=== PATIENT | female | born 1990 | race American Indian/Alaskan Native ===

== ENCOUNTER 2019-10-27 17:35 | Emergency (ER) | payer SELFPAY ==
[2019-10-27 22:23] VITALS: BP 149/85
== END 2019-10-27 23:45 | disposition left against medical advice (07) ==
LOC: ED 17:35
DX: R53.1 Weakness (principal); Z53.21 Procedure and treatment not carried out due to patient leaving prior to being seen by health care provider

== ENCOUNTER 2019-10-28 02:49 | Emergency (ER) | payer SELFPAY ==
[2019-10-28] MEDS ORDERED: ASPIRIN 325 MG TAB PO ONE (03:08)
[2019-10-28 04:12] LABS: Basophils # (Auto) 0.1 K/mm3 (0.0-0.1); Basophils % (Auto) 1.9 % (0.0-1.8); Eosinophils # (Auto) 0.1 K/mm3 (0.0-0.4); Hemoglobin 8.7 gm/dl (10.1-14.3); Lymphocytes # (Auto) 1.6 K/mm3 (1.2-5.4); Monocytes # (Auto) 0.6 K/mm3 (0.0-0.8); Monocytes % (Auto) 12.1 % (0.0-7.3)
[2019-10-28 04:19] LABS: Hematocrit 27.9 % (30.3-42.9); Mean Corpuscular HGB Conc 31 % (30-34); Platelet Count 201 K/mm3 (140-440); Red Blood Count 4.12 M/mm3 (3.65-5.03)
[2019-10-28 04:21] LABS: Mean Corpuscular Volume 68 fl (79-97)
[2019-10-28 04:22] LABS: Red Cell Distribution Width 20.4 % (13.2-15.2)
[2019-10-28 04:39] LABS: BUN/Creatinine Ratio 14; Blood Urea Nitrogen 7 mg/dL (7-17)
[2019-10-28 04:40] LABS: Hemolysis Index 4
--- NOTE | 2019-10-28 04:45 | XRay Report ---
CHEST 1 VIEW INDICATION: Chest Pain. COMPARISON: None. FINDINGS: Support devices: None. Heart: Normal. Lungs/Pleura: No acute pulmonary or pleural findings. IMPRESSION: 1. No acute findings. Signer Name: Ede Solano MD Signed: 10/28/2019 4:41 AM Workstation Name: [id number]
[2019-10-28] MEDS ORDERED: ACETAMINOPHEN 325 MG TAB PO ONE (04:51)
[2019-10-28] MEDS ORDERED: IBUPROFEN 400 MG TAB PO ONE (04:51)
[2019-10-28] MEDS ORDERED: FAMOTIDINE 20 MG TAB PO ONE (04:51)
--- NOTE | 2019-10-28 04:53 | Event Note ---
Date: 10/28/19 Medical screening note: 29-year-old female, presenting to the ER with over 24 hours of intermittent right-sided and left-sided pinching chest wall pain. Denies DVT and pulmonary embolism risk factors. Endorses generalized weakness. Leaves that she may have been exposed to COVID. She is not certain. Place patient on isolation, treat symptoms, obtain EKG x2, troponin x2, appropriate screening laboratory studies, and ambulate patient on room air on portable pulse oximeter for 5 minutes to assess for desaturation. Patient also endorses a history of significant anxiety Vital Signs 10/28/19 10/28/19 03:07 03:43 Temperature 98.5 F 98.6 F Pulse Rate 103 H 84 Respiratory 16 16 Rate Blood Pressure 125/83 137/90 [Right] O2 Sat by Pulse 99 98 Oximetry Lab Results 10/28/19 10/28/19 10/28/19 Range/Units 03:32 03:32 03:32 WBC 5.3 (4.5-11.0) K/mm3 RBC 4.12 (3.65-5.03) M/mm3 Hgb 8.7 L (10.1-14.3) gm/dl Hct 27.9 L (30.3-42.9) % MCV 68 L (79-97) fl MCH 21 L (28-32) pg MCHC 31 (30-34) % RDW 20.4 H (13.2-15.2) % Plt Count 201 (140-440) K/mm3 Lymph % (Auto) 31.0 (13.4-35.0) % [place] % (Auto) 12.1 H (0.0-7.3) % Eos % (Auto) 1.0 (0.0-4.3) % Baso % (Auto) 1.9 H (0.0-1.8) % Lymph # 1.6 (1.2-5.4) K/mm3 [place] # 0.6 (0.0-0.8) K/mm3 Eos # 0.1 (0.0-0.4) K/mm3 Baso # 0.1 (0.0-0.1) K/mm3 Seg Neutrophils % 54.0 (40.0-70.0) % Seg Neutrophils # 2.9 (1.8-7.7) K/mm3 Sodium 137 (137-145) mmol/L Potassium 3.9 (3.6-5.0) mmol/L Chloride 98.5 (98-107) mmol/L Carbon Dioxide 22 (22-30) mmol/L Anion Gap 20 mmol/L BUN 7 (7-17) mg/dL Creatinine 0.5 L (0.7-1.2) mg/dL Estimated GFR > 60 ml/min BUN/Creatinine Ratio 14 % Glucose 87 (65-100) mg/dL Calcium 9.0 (8.4-10.2) mg/dL Troponin T 0.010 (0.00-0.029) ng/mL HCG, Qual Negative (Negative)
[2019-10-28 05:47] VITALS: BP 121/76
--- NOTE | 2019-10-28 06:43 | Emergency Department Report ---
ED General Adult HPI - General Chief complaint: Chest Pain Stated complaint: CHEST PAIN Time Seen by Provider: 10/28/19 06:31 Source: patient, EMS Mode of arrival: Ambulatory Limitations: No Limitations - History of Present Illness Initial comments: Patient is 29 years old female with no significant past medical history. Patient presented to the ER complaining of chest pain and pinching on and off for a while. Patient also stated that her uncle recently diagnosed with COVID- 19 and she is worried that she might have it also. Patient denied any fever or chills but is stated that she is having some runny nose cough congestion however she said that she is a heavy smoker. Patient also admitted to drinking alcohol daily but declined rehab now. Patient stated that she also have irregular and sometimes heavy menstrual cycle when I informed her about her hemoglobin of 8.7. Patient denied any hematemesis, hematochezia or melena. Severity scale (0 -10): 8 - Related Data Allergies Allergy/AdvReac Type Severity Reaction Status Date / Time Penicillins Allergy Hives Verified 10/28/19 03:06 Sulfa (Sulfonamide Allergy Hives Verified 10/28/19 03:06 Antibiotics) ED Review of Systems ROS: Stated complaint: CHEST PAIN Other details as noted in HPI Comment: All other systems reviewed and negative Constitutional: denies: chills, fever Respiratory: cough. denies: orthopnea, shortness of breath, SOB with exertion, SOB at rest, wheezing Cardiovascular: chest pain, palpitations Gastrointestinal: denies: abdominal pain, nausea, vomiting, diarrhea, constipation, hematemesis, melena, hematochezia Musculoskeletal: denies: back pain Neurological: denies: headache, weakness, numbness, paresthesias, confusion, abnormal gait ED Past Medical Hx - Past Medical History Previous Medical History?: Yes Hx Hypertension: Yes Hx Psychiatric Treatment: Yes (anxeity) - Surgical History Past Surgical History?: Yes Hx Appendectomy: Yes - Social History Smoking Status: Current Every Day Smoker Substance Use Type: Alcohol ED Physical Exam - General Limitations: No Limitations General appearance: alert, in no apparent distress - Head Head exam: Present: atraumatic, normocephalic, normal inspection - Eye Eye exam: Present: normal appearance - ENT ENT exam: Present: normal exam, normal orophraynx, mucous membranes moist - Neck Neck exam: Present: normal inspection, full ROM. Absent: tenderness, meningismus, lymphadenopathy, thyromegaly - Respiratory Respiratory exam: Present: normal lung sounds bilaterally - Cardiovascular Cardiovascular Exam: Present: regular rate, normal rhythm, normal heart sounds - GI/Abdominal GI/Abdominal exam: Present: soft, normal bowel sounds. Absent: distended, tenderness, guarding, rebound, rigid, organomegaly, mass, bruit, pulsatile mass, hernia - Extremities Exam Extremities exam: Present: normal inspection, full ROM, normal capillary refill - Back Exam Back exam: Present: normal inspection, full ROM. Absent: CVA tenderness (R), C VA tenderness (L) - Neurological Exam Neurological exam: Present: alert, oriented X3, CN II-XII intact, normal gait, reflexes normal. Absent: motor sensory deficit - Psychiatric Psychiatric exam: Present: normal mood - Skin Skin exam: Present: warm, intact, normal color ED Course Vital Signs 10/28/19 10/28/19 10/28/19 03:07 03:43 04:00 Temperature 98.5 F 98.6 F Pulse Rate 103 H 84 76 Respiratory 16 16 18 Rate Blood Pressure 146/98 Blood Pressure 125/83 137/90 [Right] O2 Sat by Pulse 99 98 97 Oximetry 10/28/19 10/28/19 05:00 05:12 Temperature Pulse Rate Respiratory 15 16 Rate Blood Pressure 121/76 Blood Pressure [Right] O2 Sat by Pulse 98 Oximetry ED Medical Decision Making - Lab Data Result diagrams: 10/28/19 03:32 10/28/19 03:32 - Radiology Data Radiology results: report reviewed - Medical Decision Making Patient is 29 years old female with no significant past medical history. Patient presented to the ER complaining of chest pain and pinching on and off for a while. Patient also stated that her uncle recently diagnosed with COVID- 19 and she is worried that she might have it also. Patient denied any fever or chills but is stated that she is having some runny nose cough congestion however she said that she is a heavy smoker. Patient also admitted to drinking alcohol daily but declined rehab now. Patient stated that she also have irregular and sometimes heavy menstrual cycle when I informed her about her hemoglobin of 8.7. Patient denied any hematemesis, hematochezia or melena. Patient remained stable in the emergency room with a stable vital sign. Chest x-ray is unremarkable. EKG is negative for acute finding. Labs reviewed and showed hemoglobin of 8.7 most likely anemia from chronic loss of blood secondary to heavy and irregular menstrual cycle. Patient given [facility] to follow-up and started on iron sulfate and advised to follow-up with her primary care physician in the next 2 to 3 days. Patient also advised to follow-up with 1 of the center that do COVID-19 testing. Patient advised to return to the ER if she develop any new symptoms or if her symptoms get worse. Critical care attestation.: If time is entered above; I have spent that time in minutes in the direct care of this critically ill patient, excluding procedure time. ED Disposition Clinical Impression: Chest pain, Chronic anemia, Suspected COVID-19 virus infection Disposition: TO HOME OR SELFCARE Is pt being admited?: No Condition: Stable Instructions: Chest Pain (ED), Iron Deficiency Anemia (ED) Referrals: [facility] [Provider Group] - 3-5 Days [facility] [Provider Group] - 3-5 Days
== END 2019-10-28 07:14 | disposition home or self-care (01) ==
LOC: ED 02:49
DX: D64.9 Anemia, unspecified (principal); R07.9 Chest pain, unspecified; I10 Essential (primary) hypertension; F41.9 Anxiety disorder, unspecified; F17.200 Nicotine dependence, unspecified, uncomplicated; Z88.0 Allergy status to penicillin; Z20.828 Contact with and (suspected) exposure to other viral communicable diseases; Z88.2 Allergy status to sulfonamides; Z90.49 Acquired absence of other specified parts of digestive tract
CPT/HCPCS: 36415; 71045; 80048; 84484; 84703; 85025; 93005